=== PATIENT | male | born 1990 ===

== ENCOUNTER 2017-05-15 13:50 | Emergency (ER) | payer BC ==
[2017-05-15 13:54] VITALS: BP 131/81; PULSE 113; TEMP 98.4; BMI 14.9
--- NOTE | 2017-05-15 14:14 | PDOC ---
History of Present Illness - General Chief Complaint: Respiratory Stated Complaint: FEVER History Source: Patient Exam Limitations: No Limitations - History of Present Illness Initial Comments: 05/15/17 14:21 This 26-year-old male presents to the emergency room with his mother present. He apparently had awoken this morning with a fever but did not take it with a thermometer. He took another nap and awoke without any feeling of fever. He is complaining of a sore throat however and left work because of it. He has some pain but no difficulty in swallowing. No rash, no nausea, no vomiting. He states that his girlfriend is diagnosed positive with flu. He did have the flu vaccine. He has not taken anything such as Tylenol or Motrin. Past History - Past Medical History Allergies/Adverse Reactions: Allergies Allergy/AdvReac Type Severity Reaction Status Date / Time No Known Allergies Allergy Verified 05/15/17 13:54 Home Medications: Ambulatory Orders NK [No Known Home Medication] 05/15/17 COPD: No - Suicide/Smoking/Psychosocial Hx Smoking History: Current every day smoker Number of Cigarettes Smoked Daily: 2 Information on smoking cessation initiated: No Review of Systems - Review of Systems Able to Perform ROS?: Yes Comments:: 05/15/17 14:22 General statement: Feeling of a sore throat and fever this morning Hematology: neg history of bleeding/blood thinners Skin: Neg for lesions, rash, bruising. HEENT: Neg symptoms with a positive sore throat Respiratory: Neg SOB or difficulty in breathing Cardiac: Neg chest pain GI: Neg pain, n/v : Neg problems on voiding MS: Neg for joint pain/stiffness, no edema Neuro: Neg for LOC, weakness, Endocrine: Neg for excess thirst/hunger, cold/heat intolerance, excess sweating Allergies: Neg for allergies *Physical Exam - Vital Signs Last Vital Signs Temp Pulse Resp BP Pulse Ox 98.4 F 113 H 20 131/81 99 05/15/17 13:51 05/15/17 13:51 05/15/17 13:51 05/15/17 13:51 05/15/17 13:51 - Physical Exam Comments: 05/15/17 14:22 General Appearance: This well appearing male V/S: hemodynamically stable, afebrile Skin: WNL of pt's skin color, no signs of pallor, mottling, cyanosis Head:symmetrical Eyes: EOM's intact, PERRLA Ears: denies pain Nose: patent Throat: lips, teeth, gums, tongue, buccal mucos pink and moist mild erythema to the pharynx without any exudate Lungs: Chest symmetry equal. Cap refill <3 seconds. Lung sounds clear Cardiac: PMI at R 4MCL space, pos S1 and S2, regular rate. Abdomen: Soft, round, nontender : Not observed Muscularskeletal: Gait steady, ambulated in to ER, no edema +PMS Neuro: AAOx3, cognitively intact, speech clear and appropriate. Medical Decision Making - Medical Decision Making 05/15/17 14:23 Patient initially was seen and examined. 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 At this time I'm swabbing him for strep as well as influenza. Patient is afebrile and does not require any Tylenol at this time. 05/15/17 14:41 Neg for flu and strep results *DC/Admit/Observation/Transfer Diagnosis at time of Disposition: Sore throat - Discharge Dispostion Disposition: HOME Condition at time of disposition: Stable Admit: No - Referrals - Patient Instructions Printed Discharge Instructions: DI for Strep Throat Additional Instructions: Discharge instructions 1. Please follow up with your primary physician within the next few days and explain that you have been seen here in the Emergency Room. 2. If you experience any worsening of symptoms, please return to the ER 3. Rest, avoid contact with others, switch out your toothbrush in a few days and wash glasses and utensils well 4. Drink plenty of water and take tylenol for pain and fever. - Post Discharge Activity Forms/Work/School Notes: Back to Work
== END 2017-05-15 14:49 | disposition home or self-care (01) ==
LOC: JERFT 13:50
DX: J02.9 Acute pharyngitis, unspecified (principal)
CPT/HCPCS: 87070; 87430; 87804; 99281-25